=== PATIENT | female | born 1995 ===

== ENCOUNTER 2023-11-11 16:58 | Emergency (ER) | payer OTHER, SELFPAY ==
[2023-11-11 17:08] VITALS: BP 123/82
--- NOTE | 2023-11-11 18:47 | ED.GENMED ---
History of Present Illness
<Gloria Munoz PA-C - Last Filed: 11/11/23 22:09>
General
Chief Complaint: Musculo-Skeletal Complaint
Source: patient
Exam Limitations: none
Time Seen by Provider: 11/11/23 18:46
Nursing documentation reviewed up to this point in time: agreed with
Travel History
Have you had any contact with someone who has COVID-19?: No
Do you have any symptoms of coronavirus? Fever > 100 degrees, chills, cough, shortness of breath, sore throat, loss of taste or smell, muscle aches, or headache?: No
History of Present Illness
History of Present Illness:
Patient is a 28-year-old female presenting for evaluation of right toe injury. Patient states that she stubbed her right foot into a door jam about 1 to 2 hours ago. She has had significant pain in her right fifth toe. She has been unable to bear
full weight due to pain. Denies sustaining any other injuries in the fall.
Patient takes a medications daily. Denies any known drug allergies.
Review of Systems
<Gloria Munoz PA-C - Last Filed: 11/11/23 22:09>
Review of Systems
Allergies reviewed?: Yes
All Other Systems: ROS reviewed and negative except as documented in HPI and ROS
Phy Exam
<Gloria Munoz PA-C - Last Filed: 11/11/23 22:09>
Physical Exam
Physical Exam:
Vitals: Patient's vital signs are stable. Afebrile
General: Patient is well appearing, no acute distress. Nontoxic-appearing
Skin: Warm and dry, no rashes or lesions.
Head: Normocephalic, atraumatic
Eyes: Sclera nonicteric. EOMs intact. No nystagmus.
Throat: Protecting airway
Neck: Normal ROM, no cervical spine tenderness, no meningismus
Cardiac: Regular rate and rhythm, no murmurs.
Pulm: Normal respiratory effort, no wheezes, rales, rhonchi heard on exam.
Abdomen: No abdominal tenderness.
Extremities: Tenderness and mild ecchymoses noted at lateral aspect of right fifth toe. No tenderness of the base of fifth metatarsal. No tenderness at right midfoot, hindfoot. No tenderness at right medial or lateral malleolus. Achilles intact.
No tenderness at head of fibula. Strength 5 out of 5 against resistance. Sensation fully intact. Great distal pulses in RLE.
Neuro: AAOx3. CN II-XII intact. No focal neurologic deficits.
Psychiatric: Normal affect.
Course
<Gloria Munoz PA-C - Last Filed: 11/11/23 22:09>
Orders/Labs/Results
Orders:
Orders
11/11/23 17:12
Toes 2 Views, Right [CR Toe(s) Min 2 Vw Right] Urgent
Comment:
Reason For Exam: pain injury
Indicate Which Toe:: Fifth
11/11/23 18:58
Cast Shoe Right-Treatment ONCE
Ketorolac [Toradol] 15 mg IM NOW STA
Vital Signs
Initial and Last Documented VS:
Initial Vital Signs
Temp Pulse Resp BP Pulse Ox
98.7 F 104 16 123/82 98
11/11/23 17:08 11/11/23 17:08 11/11/23 17:08 11/11/23 17:08 11/11/23 17:08
Last Documented Vital Signs
Temp Pulse Resp BP Pulse Ox
98.7 F 92 17 123/93 99
11/11/23 17:08 11/11/23 18:50 11/11/23 18:50 11/11/23 18:50 11/11/23 18:50
<Chanda Sheriff MD - Last Filed: 11/11/23 19:17>
Orders/Labs/Results
Orders:
Orders
11/11/23 17:12
Toes 2 Views, Right [CR Toe(s) Min 2 Vw Right] Urgent
Comment:
Reason For Exam: pain injury
Indicate Which Toe:: Fifth
11/11/23 18:58
Cast Shoe Right-Treatment ONCE
Ketorolac [Toradol] 15 mg IM NOW STA
Vital Signs
Initial and Last Documented VS:
Initial Vital Signs
Temp Pulse Resp BP Pulse Ox
98.7 F 104 16 123/82 98
11/11/23 17:08 11/11/23 17:08 11/11/23 17:08 11/11/23 17:08 11/11/23 17:08
Last Documented Vital Signs
Temp Pulse Resp BP Pulse Ox
98.7 F 92 17 123/93 99
11/11/23 17:08 11/11/23 18:50 11/11/23 18:50 11/11/23 18:50 11/11/23 18:50
<Gloria Munoz PA-C - Last Filed: 11/11/23 22:09>
MDM/Problems Addressed
Differential Diagnosis Includes:
Not limited to: Fracture, sprain, contusion
MDM/Problems Addressed:
28-year-old female presenting for evaluation of right toe injury when she stubbed it on a door jam about an hour ago. Difficulty ambulating due to pain. No numbness/tingling. Vitals stable. Exam as above. She does have tenderness and mild
ecchymosis noted at the lateral aspect of right fifth toe. No tenderness of right ankle or head of right fibula. Achilles appears intact. No tenderness at base of fifth metatarsal. Great distal pulses. Sensation fully intact. No other signs of
trauma on exam. X-ray obtained in triage shows nonarticular, nondisplaced and nonangulated oblique fracture of mid to distal shaft of fifth proximal phalanx. Will give ice and 15 IM Toradol.
Shoaib tape was applied to the fifth and fourth right toes. Patient was placed in cast shoe. Patient will follow-up with orthopedics for further evaluation/management. Return precaution discussed. Patient comfortable with plan. All questions
answered
Chronic conditions affecting care:
N/A
Acute Exacerbation and/or Progression of Chronic Illness:
N/A
<Gloria Munoz PA-C - Last Filed: 11/11/23 22:09>
*Radiology
Radiology exam reviewed: preliminary read by ED provider and radiology read reviewed
*Pulse Oximetry
Patient hypoxic: no
*EKG
Interpreted by ED Provider?: NA
*Airways Control Specialist Interpretation
Rate: Airways Control Specialist- N/A
*Critical Care Note
Total Time (30-74mins, 75-104mins- exclusive of procedures): Not Applicable
ED Attending Note
<Gloria Munoz PA-C - Last Filed: 11/11/23 22:09>
-
Portions of this chart may have been created with voice recognition software.� Occasional wrong word or��sound alike� substitutions may have occurred due to the inherent limitations of voice recognition software.
<Chanda Sheriff MD - Last Filed: 11/11/23 19:17>
ED Attending Note
Patient seen and examined by attending physician: Yes
I performed the substantive portion of visit, reviewed & personally made and approve the management plan that is documented in note by myself or VARUN.: Yes
ED Attending Note:
No sign of head or neck trauma.
Discharge Plan
Departure
Patient Disposition: Home (Routine Discharge)
Date of Disposition: 11/11/23
Time of Disposition: 19:09
Patient with high blood pressure during this ER visit?: No
Condition: Good
Covid-19: Not Applicable
Discharge Problem:
Fracture of fifth toe, right, closed
Instructions: Toe Fracture ED
Referrals:
Chris Sandoval MD [Active] - Call in 1-3 days for appt
Activity Restrictions/Additional Instructions:
RETURN TO THE EMERGENCY DEPARTMENT WITH ANY INTRACTABLE PAIN, NUMBNESS/TINGLING IN RIGHT FOOT, WORSENING IN CURRENT SYMPTOMS, OR ANY OTHER CONCERNS
-You should keep the toe taped and wear orthopedic shoe while walking. You should apply ice and keep right foot elevated as often as possible. You can take Motrin and/or Tylenol as needed for discomfort.
-Follow-up with orthopedics for further evaluation/management.
Interventions
Interventions:
*Risk Screen - Suicide Last Done: 11/11/23 18:51
*General Assessment Last Done: 11/11/23 18:51
*Neglect/Abuse Screening Last Done: 11/11/23 18:51
ED- Fall Risk Assessment Last Done: 11/11/23 18:50
*ED COVID-19 Vaccine History Last Done: 11/11/23 17:11
*Nursing Disposition Last Done: 11/11/23 19:17
ED-Musculoskeletal Assessment Last Done: 11/11/23 18:50
Discharge Date and Time
Discharge Date/Time: 11/11/23 19:32
Print Language: KYRGYZ
[2023-11-11 18:50] VITALS: BP 123/93
[2023-11-11] MEDS: TORADOL 15 MG IM (19:04)
== END 2023-11-11 19:32 | disposition home or self-care (01) ==
LOC: EMR 16:58
PROVIDERS: EMERGENCY PHYSICIAN Emergency Medicine; FAMILY PHYSICIAN Internal Medicine
DX: S92.501A Displaced unspecified fracture of right lesser toe(s), initial encounter for closed fracture (principal); S90.121A Contusion of right lesser toe(s) without damage to nail, initial encounter; W22.09XA Striking against other stationary object, initial encounter
CPT/HCPCS: 99284; 96372; 73660

== ENCOUNTER 2024-05-19 22:33 | Emergency (ER) | payer OTHER, SELFPAY ==
[2024-05-19 22:34] VITALS: BP 138/92
--- NOTE | 2024-05-19 23:46 | EDRN ---
Pt says her uncle has cancer and she does not feel good. Pt has a lot of stress over this situation and notes 'heart pain' intermittently over the past week. Pt feels her chest pain is stress related 'but I want to make sure.' Pt has pain L chest
currently, says it started this morning but has been intermittent. No sob, fever/chills/cough, abd pain, n/v. Pt adds she has a headache.
[2024-05-19 23:56] VITALS: BP 115/77
[2024-05-20] VITALS: BP 111/70
--- NOTE | 2024-05-20 00:42 | ED.GENMED ---
History of Present Illness
General
Chief Complaint: Cardiac Symptoms
Source: patient
Exam Limitations: none
Time Seen by Provider: 05/19/24 23:35
History of Present Illness
History of Present Illness:
This is a 28 year old female that comes in with c/o chest pain. States that her uncle has Cancer and she is under a lot of stress. States that she didn't feel well today. States that she has had chest pain and headaches last week that may last 1
hour, 1.5 hours or 20 min. States that today she has had discomfort all day. States that she had chills, chest pain, headache. Denies any fever, SOB, abd pain, nausea, vomiting, diarrhea, dizziness, urinary burning.
Past History
Past History
ED Past Medical History: None; Negative Asthma, HTN, Hypercholesterolemia, NIDDM or Psychiatric
ED Past Surgical History: (X 1)
Social History
Tobacco: Smoker
Alcohol: None
Personal:
Living: with family
Review of Systems
Review of Systems
All Other Systems: ROS reviewed and negative except as documented in HPI and ROS
Constitutional: Reports chills; Denies fever
EENT: Reports no symptoms
Respiratory: Reports no symptoms; Denies cough or trouble breathing
Cardiac: Reports chest pain
ABD/GI: Reports no symptoms; Denies abdominal pain, nausea, vomiting or diarrhea
: Reports no symptoms; Denies dysuria, frequency or urgency
Musculoskeletal: Reports no symptoms
Skin: Reports no symptoms
Neurological: Reports headache; Denies dizzy
Psychiatric: Reports no symptoms
Phy Exam
General Physical Exam
General Presentation: well appearing and no apparent distress
General age: appears stated age
General Skin: warm and dry
General Habitus: normal
General Mental: alert
General Hydration: appears well hydrated
ENT Exam
ENT Exam: TM's normal, pharynx normal and neck supple
Eye Exam
Eye Exam: EOMI
Cardiovascular Exam
Cardiovascular Exam: regular rate/rhythm, no edema, no murmur and normal peripheral pulses
Pulmonary Exam
Pulmonary Exam: lungs clear, no respiratory distress, no rales, chest non tender, no crackles, no rhonchi, no wheezing and no cough
Gastrointestinal Exam
Gastrointestinal Exam: normal bowel sounds, non tender, soft, no organomegaly, no pulsatile mass and non distended
Musculoskeletal Exam
Musculoskeletal Exam: full ROM and no edema
Skin Exam
Skin Exam: normal color, warm/dry, no rash and no petechia
Psychiatric Exam
Psychiatric Exam: normal mood/affect
Course
Orders/Labs/Results
Orders:
Orders
05/19/24 22:36
ECG [Electrocardiogram (*1)] Urgent
Reason for Study: Chest Pain
EKG- Treatment ONCE
05/20/24 00:41
CR Chest - 2 Views Urgent
Comment:
Reason For Exam: Chest pain
05/20/24 00:43
Acetaminophen [Tylenol] 1,000 mg PO NOW STA
05/20/24 00:48
Complete Blood Count/With Diff Urgent
Comprehensive Metabolic Panel Urgent
Troponin I Urgent
Abnormal Lab Results
05/20/24
00:48
RBC 3.97 L 10^6/uL
(4.20-5.40)
Hct 35.7 L %
(37.0-47.0)
MCH 32.5 H pg
(27.0-31.0)
RDW 11.3 L %
(11.5-14.5)
05/20/24 00:48
05/20/24 00:48
Labs unremarkable. Troponin <0.012
Vital Signs
Initial and Last Documented VS:
Initial Vital Signs
Temp Pulse Resp BP Pulse Ox
98.2 F 82 20 138/92 99
12/22/24 22:34 05/19/24 22:34 05/19/24 22:34 05/19/24 22:34 05/19/24 22:34
Last Documented Vital Signs
Temp Pulse Resp BP Pulse Ox
98.2 F 62 14 111/70 99
05/19/24 22:34 05/20/24 00:00 05/20/24 00:00 05/20/24 00:00 05/19/24 22:34
MDM/Problems Addressed
Differential Diagnosis Includes:
Anxiety, Coronary syndrome
MDM/Problems Addressed:
This is a 28 year old female that comes in with c/o chest pain and a headache. States that she has had this over the past week but would come and go. Today she has had all day.
Will check labs and chest x-ray.
Chronic conditions affecting care:
NA
Acute Exacerbation and/or Progression of Chronic Illness:
NA
*Radiology
Radiology exam reviewed: preliminary read by ED provider (Chest-Negative for active disease. )
*Pulse Oximetry
Patient hypoxic: no
*EKG
Interpreted by ED Provider?: Yes
Heart Rate: 75
Rate: normal
Rhythm: sinus arrhythmia
[place]: normal axis
Interval: normal interval
QRS Pattern: normal QRS
Ischemia: no ischemia
*Alarm Investigator Interpretation
Rate: normal
Heart Rate: 64
Rhythm: sinus
*Critical Care Note
Total Time (30-74mins, 75-104mins- exclusive of procedures): Not Applicable
ED Attending Note
-
Portions of this chart may have been created with voice recognition software.� Occasional wrong word or��sound alike� substitutions may have occurred due to the inherent limitations of voice recognition software.
Discharge Plan
Departure
Patient Disposition: Home (Routine Discharge)
Date of Disposition: 05/20/24
Time of Disposition: 02:23
Patient with high blood pressure during this ER visit?: No
Condition: Good
Covid-19: Not Applicable
Discharge Problem:
Anxiety
Instructions: Anxiety in adults - ED discharge instructions
Prescriptions:
No Action
Biktarvy
1 tab PO DAILY
Patient Comments:
pt does not know mg
citalopram 10 mg Tablet
10 mg PO DAILY
valerian root 500 mg Capsule
500 mg PO DAILY
Referrals:
Alejo Lo MD [Family Provider] - Call in 1-3 days for appt
Activity Restrictions/Additional Instructions:
As discussed, your blood work is all normal along with your chest x-ray. This is most likely related to Anxiety due to the stress that you are under. Follow up with the family doctor for recheck. IF YOU HAVE ANY OTHER CONCERNS PLEASE RETURN TO THE
EMERGENCY ROOM.
Interventions
Interventions:
*Risk Screen - Suicide Last Done: 05/19/24 23:43
*General Assessment Last Done: 05/19/24 22:34
*Neglect/Abuse Screening Last Done: 05/19/24 23:43
*ED COVID-19 Vaccine History Last Done: 05/19/24 23:43
ED- Pulmonary Assessment Last Done: 05/19/24 23:59
ED- Cardiac Assessment Last Done: 05/19/24 23:59
Discharge Date and Time
Print Language: [place]IZ[place]
[2024-05-20 00:56] LABS: % Basophils 0.9 % (0-2); % Eosinophils 0.4 % (0-6); % Immature Granulocytes 0.2 % (0-0.5); % Lymphocytes 33.5 % (20.5-51.1); % Monocytes 8.2 % (1.7-9.3); % Neutrophils 56.8 % (42.2-75.2); Absolute Basophils 0.1 10^3/uL (0-0.2); Absolute Lymphocytes 1.9 10^3/uL (1.2-3.4); Absolute Monocytes 0.5 10^3/uL (0.1-0.6); Absolute Neutrophils 3.2 10^3/uL (1.4-6.5); Hematocrit 35.7 % (37.0-47.0); Hemoglobin 12.9 g/dL (12.0-16.0); Mean Corp Hgb Conc. 36.1 g/dL (33.0-37.0); Mean Corpuscular Hgb 32.5 pg (27.0-31.0); Mean Corpuscular Volume 89.9 fL (81.0-99.0); Nucleated Red Blood Cells % 0 %; Platelet Count 254 10^3/uL (130-400); Red Blood Cell Count 3.97 10^6/uL (4.20-5.40); Red Cell Dist. Width 11.3 % (11.5-14.5); White Blood Cell Count 5.6 10^3/uL (4.8-10.8)
[2024-05-20] MEDS: TYLENOL 1000 MG PO (00:56)
[2024-05-20 01:15] LABS: ALT (SGPT) 26 U/L (0-35); AST (SGOT) 24 U/L (14-36); Albumin 4.7 g/dl (3.5-5.0); Alkaline Phosphatase 50 U/L (38-126); Blood Urea Nitrogen 16 mg/dl (7-17); Calcium 9.5 mg/dl (8.4-10.2); Carbon Dioxide 26 mmol/L (22-30); Chloride 103 mmol/L (98-107); Glucose 95 mg/dl (70-99); Potassium 4.1 mmol/L (3.5-5.1); Sodium 137 mmol/L (135-145); Total Bilirubin 0.7 mg/dl (0.2-1.3); Total Protein 7.7 g/dl (6.3-8.2); eGFR > 60.00
[2024-05-20 01:22] LABS: Troponin I < 0.012 ng/ml
[2024-05-20 01:30] VITALS: BP 108/64
== END 2024-05-20 02:29 | disposition home or self-care (01) ==
LOC: EMR 22:33
PROVIDERS: Clinical Nurse Specialist Family Health; EMERGENCY PHYSICIAN Emergency Medicine; FAMILY PHYSICIAN Internal Medicine
DX: F41.9 Anxiety disorder, unspecified (principal); R51.9 Headache, unspecified; F17.200 Nicotine dependence, unspecified, uncomplicated
CPT/HCPCS: 99283; 71046; 80053; 84484; 85025; 93005